=== PATIENT | male | born 1955 ===

== ENCOUNTER 2017-03-12 08:55 | Emergency (ER) | payer SELFPAY ==
[2017-03-12 08:56] VITALS: BMI 36.8
--- NOTE | 2017-03-12 09:30 | C.PDOC ---
History Of Present Illness NEW ONSET B/L LQ PAIN, DIARRHEA X SEV DAYS. +FEVER. EVAL @ [facility] ON 03/07 FOR DYSURIA. NEG LABS, UA, UCX DX BALANTIS AND DC W CREAM. PS NO IMPROVE W CREAM EXAM MILD DIST NONTOXIC HEENT NEG ABD +RLQ TEND SOFT NO RG REMAINDER NEG Time Seen by Provider: 03/12/17 09:17 Chief Complaint (Nursing): Flu-like Symptoms History Per: Patient History/Exam Limitations: no limitations Onset/Duration Of Symptoms: Days Current Symptoms Are (Timing): Still Present Severity: Moderate Past Medical History Reviewed: Historical Data, Nursing Documentation, Vital Signs Vital Signs: Last Vital Signs Temp 97.9 F 03/12/17 14:33 Pulse 69 03/12/17 14:33 Resp 20 03/12/17 14:33 BP 134/84 03/12/17 14:33 Pulse Ox 95 03/12/17 14:33 - Medical History PMH: No Chronic Diseases Surgical History: No Surg Hx Family History: States: No Known Family Hx - Social History Hx Alcohol Use: Yes Hx Substance Use: No - Immunization History Hx Tetanus Toxoid Vaccination: No Hx Influenza Vaccination: No Hx Pneumococcal Vaccination: No Review Of Systems Except As Marked, All Systems Reviewed And Found Negative. Constitutional: Positive for: Fever. Negative for: Chills Gastrointestinal: Positive for: Abdominal Pain, Diarrhea. Negative for: Nausea , Vomiting Physical Exam - Physical Exam Appears: Non-toxic, Other (mild distress) Skin: Normal Color, Warm Head: Atraumatic, Normacephalic Eye(s): bilateral: Normal Inspection, PERRL Ear(s): Bilateral: Normal Nose: Normal Oral Mucosa: Moist Throat: Normal, No Erythema, No Exudate Gastrointestinal/Abdominal: Normal Exam, Soft, Tenderness (RLQ Tenderness), No Guarding, No Rebound Neurological/Psych: Oriented x3, Normal Speech, Normal Cognition, Normal Motor, Normal Sensation ED Course And Treatment - Laboratory Results Result Diagrams: 03/12/17 10:27 03/12/17 09:36 ECG: Interpreted By Me ECG Rhythm: Sinus Rhythm Rate From EC O2 Sat by Pulse Oximetry: 100 (RA) Pulse Ox Interpretation: Normal Progress - Re-Evaluation Re-evaluation Note: 03/12/17 11:36 APEPARS COMFORTABLE NAD PS FEELS BETTER S/P MORPHINE. CT PENDING 03/12/17 15:02 EXAM [facility] PRIOR ASYMPT. ER [facility] REFERRAL [facility] GIVEN. - Data Reviewed Data Reviewed: Lab, Diagnostic imaging, EKG, Old records Medical Decision Making Medical Decision Making: Plan: -- Abd. & Pelv. W/ IV Contrast --ECG --Labs --IV Fluids Disposition Counseled Patient/Family Regarding: Studies Performed, Diagnosis, Need For Followup - Disposition Referrals: [facility] [Outside] [facility] [Outside] Disposition: HOME/ ROUTINE Disposition Time: 15:02 Condition: IMPROVED Instructions: Abdominal Pain (ED) Forms: [employer] (Lithuanian), Work Excuse Print Language: URDU - Clinical Impression Clinical Impression: Abdominal pain - Scribe Statement The provider has reviewed the documentation as recorded by the Scribe Neena Mcghee Provider Attestation: All medical record entries made by the Scribe were at my direction and personally dictated by me. I have reviewed the chart and agree that the record accurately reflects my personal performance of the history, physical exam, medical decision making, and the department course for this patient. I have also personally directed, reviewed, and agree with the discharge instructions and disposition.
[2017-03-12] MEDS ORDERED: Sodium Chloride 0.9% 1,000 ML ONE ×2 (09:54→12:15)
[2017-03-12] MEDS: Sodium Chloride 0.9% 1,000 ML IV ONE ×2 (09:55→11:21)
[2017-03-12 10:25] LABS: BASO # 0.1 K/uL (0.0-0.2); BASO % 0.7 % (0.0-2.0); EOS # 0.1 K/uL (0.0-0.7); EOS % 0.9 % (0.0-4.0); HEMOGLOBIN 14.3 g/dL (12.0-18.0); LYMPH # 1.6 K/uL (1.0-4.3); LYMPH % 23.2 % (20.0-40.0); MEAN CORPUSCULAR HEMOGLOBIN 32.1 pg (27.0-31.0); MEAN CORPUSCULAR HGB CONC 33.4 g/dL (33.0-37.0); MEAN PLATELET VOLUME 9.1 fL (7.2-11.7); MONO # 0.4 K/uL (0.0-0.8); NEUT # 4.9 K/uL (1.8-7.0); NEUT % 70.2 % (50.0-75.0); NRBC % 0.1 % (0.0-2.0); RBC 4.45 Mil/uL (4.40-5.90); RED CELL DISTRIBUTION WIDTH 13.2 % (11.5-14.5)
[2017-03-12 11:28] LABS: ALB/GLOB RATIO 1.2 (1.0-2.1); ALBUMIN 4.3 g/dL (3.5-5.0); ALT/SGPT 30 U/L (21-72); AST/SGOT 27 U/L (17-59); BLOOD UREA NITROGEN 11 mg/dL (9-20); CALCIUM 8.5 mg/dl (8.6-10.4); GFR AFRICAN-AMERICAN > 60; GFR NON-AFRICAN AMERICAN > 60
[2017-03-12] MEDS ORDERED: Iodixanol 320 MG/ML 100 ML BOTTLE IV ONE (12:52)
--- NOTE | 2017-03-12 13:48 | CT ---
PROCEDURE: CT Abdomen and Pelvis with contrast HISTORY: abd pain COMPARISON: None available. TECHNIQUE: Contrast dose: 100 mL Visipaque Radiation dose: Total exam DLP = 1057.01 mGy-cm. This CT exam was performed using one or more of the following dose reduction techniques: Automated exposure control, adjustment of the mA and/or kV according to patient size, and/or use of iterative reconstruction technique. FINDINGS: LOWER THORAX: Mild bibasilar atelectasis. No visible pleural effusion or pneumothorax. LIVER: Unremarkable. GALLBLADDER AND BILE DUCTS: Unremarkable. PANCREAS: Unremarkable. No gross lesion or ductal dilatation. SPLEEN: Unremarkable. ADRENALS: Unremarkable. No mass. KIDNEYS AND URETERS: Unremarkable. No hydronephrosis. No solid mass. VASCULATURE: Unremarkable. No aortic aneurysm. BOWEL: Stomach is nondistended. Lack of oral contrast limits evaluation for bowel pathology. Bowel loops appear within normal limits of caliber without evidence of obstruction. APPENDIX: The appendix appears within normal limits of caliber. No secondary signs of acute appendicitis. PERITONEUM: No significant free fluid. No definite free air. LYMPH NODES: No bulky adenopathy identified. BLADDER: Question presence of 8 mm soft tissue nodule at the anterior aspect of the urinary bladder (series 3, image 135) ; suggest further evaluation with urinalysis and cystoscopy if indicated. REPRODUCTIVE: Unremarkable. BONES: Degenerative changes of the spine. OTHER FINDINGS: Small fat containing inguinal hernias. IMPRESSION: Question presence of 8 mm soft tissue nodule at the anterior aspect of the urinary bladder ; suggest further evaluation with urinalysis and cystoscopy if indicated. Additional findings as above.
[2017-03-12 14:35] VITALS: PULSE 69
[2017-03-12 14:57] LABS: URINE BILIRUBIN NEGATIVE (NEGATIVE); URINE BLOOD NEGATIVE (NEGATIVE); URINE CLARITY Clear (Clear); URINE COLOR Yellow (YELLOW); URINE GLUCOSE (UA) NORMAL (Normal); URINE LEUKOCYTE ESTERASE NEG Leu/uL (Negative); URINE NITRATE NEGATIVE (NEGATIVE); URINE PROTEIN NEGATIVE (NEGATIVE); URINE UROBILINOGEN NORMAL mg/dL (0.2-1.0)
[2017-03-12 15:32] VITALS: BP 163/87; RESP 18; TEMP 98.1; O2SAT 95
== END 2017-03-12 15:50 | disposition home or self-care (01) ==
LOC: C.ER 08:55
DX: R10.9 Unspecified abdominal pain (principal)
CPT/HCPCS: 74177; 80053; 81001; 85025; 96374; 96375; 99285; J2270; J2405; J7040; Q9967

== ENCOUNTER 2017-03-13 16:02 | Emergency (ER) | payer OTHER ==
[2017-03-13 16:02] VITALS: BMI 36.8
[2017-03-13] MEDS ORDERED: Lidocaine 1%/Epinephrine 1:100000 30 ml vial IJ STA (16:28)
--- NOTE | 2017-03-13 16:28 | C.PDOC ---
History Of Present Illness 61 year old male sent to ED for I&D of thromobosed hemorrhoid. Denies fever, nausea, vomiting, abdominal pain, or other complaints. Time Seen by Provider: 03/13/17 16:15 Chief Complaint (Nursing): Abnormal Skin Integrity History Per: Patient History/Exam Limitations: no limitations Onset/Duration Of Symptoms: Days Current Symptoms Are (Timing): Still Present Location Of Injury: Posterior: Perineum Recent travel outside of the [place]: No Additional History Per: Patient Past Medical History Reviewed: Historical Data, Nursing Documentation, Vital Signs Vital Signs: Last Vital Signs Temp 98.1 F 03/13/17 18:05 Pulse 68 03/13/17 18:05 Resp 14 03/13/17 18:05 BP 128/80 03/13/17 18:05 Pulse Ox 99 03/13/17 18:05 Family History: States: Unknown Family Hx - Social History Hx Alcohol Use: Yes Hx Substance Use: No - Immunization History Hx Tetanus Toxoid Vaccination: No Hx Influenza Vaccination: No Hx Pneumococcal Vaccination: No Review Of Systems Except As Marked, All Systems Reviewed And Found Negative. Constitutional: Negative for: Fever, Chills Gastrointestinal: Positive for: Rectal Pain (thrombosed hemorrhoid). Negative for: Nausea, Vomiting, Abdominal Pain Physical Exam - Physical Exam Appears: Non-toxic, No Acute Distress Skin: Normal Color, Warm, Dry Head: Atraumatic, Normacephalic Eye(s): bilateral: Normal Inspection Oral Mucosa: Moist Cardiovascular: Rhythm Regular, No Murmur Respiratory: Normal Breath Sounds, No Rales, No Rhonchi, No Wheezing Gastrointestinal/Abdominal: Soft, No Tenderness Rectal: Hemorrhoids (thrombosed hemorrhoid in perineum area) Extremity: Normal ROM, No Deformity Neurological/Psych: Oriented x3, Normal Speech ED Course And Treatment O2 Sat by Pulse Oximetry: 97 (RA) Pulse Ox Interpretation: Normal - Incision & Drainage Of Abscess Anesthesia: Lidocaine 1%, With Epi Prep Used: Sterile Water Procedure: Incised W/Scalpel Blade#:, Drained Pus, Irrigated Cavity W/Saline Disposition - Disposition Referrals: Cristiano Mesa MD [Staff Provider] - Disposition: HOME/ ROUTINE Disposition Time: 17:10 Condition: STABLE Additional Instructions: please follow up with your doctor/specialist. return to er with worsening symptoms or concerns. Prescriptions: Hydrocortisone 2.5% (Rectal) [Anusol-HC] 1 applic PA BID #1 tube Instructions: Hemorrhoids (ED) Forms: [employer] ([place] Islander) - Clinical Impression Clinical Impression: Thrombosed hemorrhoids - Scribe Statement The provider has reviewed the documentation as recorded by the Charlesibe Eric Buckley All medical record entries made by the Charlesibe were at my direction and personally dictated by me. I have reviewed the chart and agree that the record accurately reflects my personal performance of the history, physical exam, medical decision making, and the department course for this patient. I have also personally directed, reviewed, and agree with the discharge instructions and disposition.
[2017-03-13] MEDS ORDERED: Lidocaine 2% w Epi 1:100,000 Inj IJ ONE (16:40)
[2017-03-13 18:06] VITALS: BP 128/80; PULSE 68; RESP 14; TEMP 98.1
[2017-03-15 13:16] VITALS: O2SAT 97
== END 2017-03-13 18:06 | disposition home or self-care (01) ==
LOC: C.ER 16:02
DX: K64.5 Perianal venous thrombosis (principal)